=== PATIENT | female | born 1945 | race Caucasian/White ===

== ENCOUNTER → 2016-12-29 | Outpatient (CLI) | payer OTHER ==
[~2016-12-29] MED LIST: ASPI81TA28 PO; CALC600T9 PO; CLON0.5T3 PO; CYAN100020 PO; GLIM2TAB2 PO; LEVO-459 PO; MCRK20 PO; METF-384 PO; MULT-188 PO; MULT-506 PO; MULTCAP33 PO; TRAZ50TA35 PO
[2016-12-29 12:18] LABS: ESTIMATED AVERAGE GLUCOSE 140 mg/dl; HA1C FLAG Normal (Normal)
[2016-12-29 12:28] LABS: ALT/SGPT 51 U/L (12-78); AST/SGOT 33 U/L (15-37); BLOOD UREA NITROGEN 12 mg/dl (7-18); BUN/CREATININE RATIO 16.4 (10-20); CALCIUM 8.9 mg/dl (8.5-10.1); CARBON DIOXIDE 24 mmol/L (21-32); CHLORIDE 107 mmol/L (98-107); CREATININE 0.74 mg/dl (0.60-1.20); GLUCOSE 97 mg/dl (70-99); POTASSIUM 3.5 mmol/L (3.5-5.1); SODIUM 141 mmol/L (136-145)
[2016-12-29 12:39] LABS: ALB/GLOB RATIO 1.2 (0.9-2); ALKALINE PHOSPHATASE 56 U/L (45-117); CHOLESTEROL 174 mg/dl (0-200); CHOLESTEROL/HDL RATIO 4.6; HDL CHOLESTEROL 38 mg/dl; LDL CHOLESTEROL CALCULATED 94 mg/dl; TRIGLYCERIDES 212 mg/dl (0-150); VERY LOW DENSITY LIPOPROT CALC 42 mg/dl
== END | disposition home or self-care (01) ==
LOC: C.LABBFT 08:45
PROVIDERS: ATTEND Internal Medicine
DX: E11.29 Type 2 diabetes mellitus with other diabetic kidney complication (principal)

== ENCOUNTER → 2017-04-27 | Day surgery (SDC) | payer OTHER ==
[2017-04-09 10:03] VITALS: Ht 160 cm; Wt 100.9 kg
[~2017-04-27] VITALS: Ht 160 cm; Wt 100.9 kg
[~2017-04-27] MED LIST changes: +LABETALOL HCL IV 5 MG/ML 20ML IV ONE; +LIDOCAINE HCL 2% 2 ML VIAL (20MG/ML) ONE; +PROPOFOL IV EMULSION 10 MG/ML 20 ML VIAL IV ONE; +SODIUM CHLORIDE 0.9% 500ML 500 ML IV ONE
--- NOTE | 2017-04-27 11:09 | Endo History and Physical ---
History & Physical Date of Service: Apr 27, 2017. Chief Complaint: History of stomach tumor and Screening colonoscopy Referring Physician: Dr. Moralez History of Present Illness 71 yo CF who presents for EGD secondary to history of stomach tumor and screening colonoscopy. Past Medical History Diabetes, Anxiety, High Cholesterol, COPD, Thyroid Disease, CVA/TIA, Depression Past Surgical History Hx Cardiac Surgery: No Hx Internal Defibrillator: No Hx Pacemaker: No Hx Abdominal Surgery: Yes (COLON RESECTION, MALIHA BSO, LETI) Hx of Implantable Prosthesis: No Hx Post-Op Nausea and Vomiting: No Hx Cancer Surgery: No Hx Thoracic Surgery: No Hx Orthopedic: No Hx Urinary Tract Surgery: No Family History Colon CA Social History Smoking Status: Former Smoker Hx Substance Use: No Hx Alcohol Use: No Allergies Coded Allergies: No Known Drug Allergy (Verified Allergy, Unknown, NKDA, 04/09/17) Uncoded Allergies: YELLOW GOLD (Allergy, Unknown, RASH, 04/09/17) Current Medications Reported Home Medications Medications Dose Route/Sig Max Daily Dose Days Date Category Preservision Areds (Multiple Vitamins W/ Minerals) 1 Cap Cap 1 Cap PO QAM 04/09/17 Reported Multivitamin (Multivitamins) Tab 1 Tab PO QAM 02/29/16 Reported Glimepiride 2 Mg Tab 1 Tab PO QAM 02/29/16 Reported Klonopin (Clonazepam) 0.5 Mg Tab 0.5 Mg PO BID 02/29/16 Reported Ocuvite (Multiple Vitamins W/ Minerals) 1 Tab Tab 1 Tab PO QAM 05/16/15 Reported Calcium + D (Calcium Carbonate-Vitamin D) 1 Tab Tab 1 Tab PO QAM 05/16/15 Reported Vitamin B12 (Cyanocobalamin) 1,000 Mcg Tab 1 Tab PO QAM 05/16/15 Reported Trazodone (Trazodone HCl) 50 Mg Tab 50 Mg PO HS 05/16/15 Reported Aspirin Ec (Aspirin) 81 Mg Tab 81 Mg PO QAM 05/16/15 Reported Glucophage (Metformin Hcl) 1,000 Mg Tab 1,000 Mg PO BID 04/13/14 Reported Vital Signs Weight (Kilograms): 100.91 Height (Feet): 5 Height (Inches): 3 Physical Exam General Appearance: WD/WN, no apparent distress Respiratory/Chest: Auscultation: breath sounds normal Cardiovascular: Heart Auscultation: RRR Abdomen: Bowel Sounds: normal Inspection & Palpation: soft, non-distended, no tenderness, guarding & rebound Assessment and Plan Assessment: 71 yo CF who presents for EGD secondary to history of stomach tumor and screening colonoscopy. Plan: Proceed with EGD and colonoscopy.
--- NOTE | 2017-04-27 12:22 | Discharge Instructions ---
Endoscopy Patient Instructions Date / Procedure(s) Performed Apr 27, 2017. Colonoscopy, EGD Allergy Information Coded Allergies: No Known Drug Allergy (Verified Allergy, Unknown, NKDA, 04/09/17) Uncoded Allergies: YELLOW GOLD (Allergy, Unknown, RASH, 04/09/17) Discharge Date / Findings Apr 27, 2017. EGD: Foreign Body Removal (Suture at gastric anastomosis) Colonoscopy: Sigmoid colon anastomosis, Internal hemorrhoids Medication Instructions Stopped Medication(s): ASPIRIN 81MG LAST DOSE 04/24/17 OK to resume all medications today as prescribed Reported Home Medications Medications Dose Route/Sig Max Daily Dose Days Date Category Preservision Areds (Multiple Vitamins W/ Minerals) 1 Cap Cap 1 Cap PO QAM 04/09/17 Reported Multivitamin (Multivitamins) Tab 1 Tab PO QAM 02/29/16 Reported Glimepiride 2 Mg Tab 1 Tab PO QAM 02/29/16 Reported Klonopin (Clonazepam) 0.5 Mg Tab 0.5 Mg PO BID 02/29/16 Reported Ocuvite (Multiple Vitamins W/ Minerals) 1 Tab Tab 1 Tab PO QAM 05/16/15 Reported Calcium + D (Calcium Carbonate-Vitamin D) 1 Tab Tab 1 Tab PO QAM 05/16/15 Reported Vitamin B12 (Cyanocobalamin) 1,000 Mcg Tab 1 Tab PO QAM 05/16/15 Reported Trazodone (Trazodone HCl) 50 Mg Tab 50 Mg PO HS 05/16/15 Reported Aspirin Ec (Aspirin) 81 Mg Tab 81 Mg PO QAM 05/16/15 Reported Glucophage (Metformin Hcl) 1,000 Mg Tab 1,000 Mg PO BID 04/13/14 Reported Provider Instructions Activity Restrictions - No exercising or heavy lifting for 24 hours. - Do not drink alcohol the day of the procedure. - Do not drive a car or operate machinery until the day after the procedure. - Do not make any important decisions or sign important papers in 24 hours after the procedure. Following Day: - Return to full activity which may include returning to work/school. Diet Start your diet with liquids and light foods (jello, soup, juice, toast). Then eat your usual diet if not nauseated. Treatment For Common After Affects For mild abdominal pain, bloating, or excessive gas: - Rest - Eat lightly - Lie on right side Follow-Up Information Follow-up with DR. YOST as scheduled Anesthesia Information What You Should Know You have had a procedure that required some medicine to reduce anxiety and discomfort. This treatment is called moderate sedation. After receiving the treatment, you may be sleepy, but you will be able to breathe on your own. The effects of the treatment may last for several hours. Follow these instructions along with Activity/Diet recommendations noted above: * Do NOT do anything where dizziness or clumsiness would be dangerous. * Rest quietly at home today, then you can be up and about tomorrow. * Have a responsible person stay with you the rest of today. * You may have had an I.V. today. If so, you may take the dressing off later today. Recommendations Call your doctor if: * Trouble breathing * Continuous vomiting for more than 24 hours * Temperature above 101 degrees * Severe abdominal pain or bloating * Pain not relieved by pain medicine ordered * There is increased drainage or redness from any incision * A large amount of rectal bleeding greater than 2-3 tablespoons. (If you had a polyp/s removed or have hemorrhoids, a small amount of blood - from the rectum is to be expected.) * You have any unanswered questions or concerns. IN THE EVENT OF A SERIOUS EMERGENCY, GO TO THE NEAREST EMERGENCY ROOM Your discharge instructions were prepared by provider Hieu Campos. Patient Instructions Signature Page [place] Pop Patient (or Guardian) Signature/Date: I have read and understand the instructions given to me by my caregivers. Caregiver/RN/Doctor Signature/Date: The above-named patient and/or guardian has received patient instructions on this date. + Original Patient Signature Page (only) stays with chart. Please make copy for patient.
--- NOTE | 2017-04-27 12:27 | GI REPORT ---
Procedure Date: 04/27/2017 11:45 AM Procedure: Upper GI endoscopy Indications: Family history of gastric cancer Medicines: Monitored Anesthesia Care Complications: No immediate complications. Estimated Blood Loss: Estimated blood loss: none. Procedure: Pre-Anesthesia Assessment: - Prior to the procedure, a History and Physical was performed, and patient medications and allergies were reviewed. The patient's tolerance of previous anesthesia was also reviewed. The risks and benefits of the procedure and the sedation options and risks were discussed with the patient. All questions were answered, and informed consent was obtained. Prior Anticoagulants: The patient has taken aspirin, last dose was 3 days prior to procedure. ASA Grade Assessment: II - A patient with mild systemic disease. After reviewing the risks and benefits, the patient was deemed in satisfactory condition to undergo the procedure. After obtaining informed consent, the endoscope was passed under direct vision. Throughout the procedure, the patient's blood pressure, pulse, and oxygen saturations were monitored continuously. The Scope was introduced through the mouth, and advanced to the second part of duodenum. The upper GI endoscopy was accomplished without difficulty. The patient tolerated the procedure well. Findings: The esophagus was normal. A suture was found at the anastomosis. Removal was accomplished with a regular forceps and a block cutter. The examined duodenum was normal. Impression: - Normal esophagus. - A suture was found in the stomach. Removal was successful. - Normal examined duodenum. Recommendation: - Resume previous diet. - Continue present medications. - Repeat the upper endoscopy in 3 years for surveillance. - Return to primary care physician as previously scheduled. Hieu Campos DO 04/27/2017 12:27:09 PM This report has been signed electronically. Note Initiated On: 04/27/2017 11:45 AM I attest to the content of the Intraoperative Record and orders documented therein, exceptions below
--- NOTE | 2017-04-27 12:29 | GI REPORT ---
Procedure Date: 04/27/2017 11:51 AM Procedure: Colonoscopy Indications: Screening for colorectal malignant neoplasm Medicines: Monitored Anesthesia Care Complications: No immediate complications. Estimated Blood Loss: Estimated blood loss: none. Procedure: Pre-Anesthesia Assessment: - Prior to the procedure, a History and Physical was performed, and patient medications and allergies were reviewed. The patient's tolerance of previous anesthesia was also reviewed. The risks and benefits of the procedure and the sedation options and risks were discussed with the patient. All questions were answered, and informed consent was obtained. Prior Anticoagulants: The patient has taken aspirin, last dose was 3 days prior to procedure. ASA Grade Assessment: II - A patient with mild systemic disease. After reviewing the risks and benefits, the patient was deemed in satisfactory condition to undergo the procedure. After I obtained informed consent, the scope was passed under direct vision. Throughout the procedure, the patient's blood pressure, pulse, and oxygen saturations were monitored continuously. The scope was introduced through the anus and advanced to the ileocolonic anastomosis. The colonoscopy was performed without difficulty. The patient tolerated the procedure well. The quality of the bowel preparation was good. The terminal ileum and the rectum were photographed. Findings: There was evidence of a prior end-to-side ileo-colonic anastomosis in the sigmoid colon. This was patent and was characterized by healthy appearing mucosa. The anastomosis was traversed. Non-bleeding internal hemorrhoids were found during retroflexion. The hemorrhoids were small. Impression: - Patent end-to-side ileo-colonic anastomosis, characterized by healthy appearing mucosa. - Non-bleeding internal hemorrhoids. - No specimens collected. Recommendation: - Resume previous diet. - Continue present medications. - Repeat colonoscopy in 5 years for surveillance. - Return to primary care physician as previously scheduled. Hieu Campos DO 04/27/2017 12:29:04 PM This report has been signed electronically. Note Initiated On: 04/27/2017 11:51 AM I attest to the content of the Intraoperative Record and orders documented therein, exceptions below
--- NOTE | 2017-04-27 12:55 | Anesthesiology Progress Note ---
Anesthesia Post Op Note Date & Time Apr 27, 2017 at 12:54 Vital Signs Pain Intensity: 0 Vital Signs Past 12 Hours Date Time Temp Pulse Resp B/P (MAP) Pulse Ox O2 Delivery O2 Flow Rate FiO2 04/27/17 12:45 85 20 144/75 (98) 96 Room Air 04/27/17 12:30 90 20 143/84 (103) 95 Room Air 04/27/17 11:05 36.8 95 18 162/63 (96) 100 Room Air Notes Mental Status: alert / awake / arousable, participated in evaluation Pt Amnestic to Procedure: Yes Nausea / Vomiting: adequately controlled Pain: adequately controlled Airway Patency, RR, SpO2: stable & adequate BP & HR: stable & adequate Hydration State: stable & adequate Anesthetic Complications: no major complications apparent
[2017-04-27 13:00] VITALS: BP 154/75; PULSE 86; O2SAT 96
== END | disposition home or self-care (01) ==
LOC: C.GI 10:48
PROVIDERS: ATTEND Internal Medicine
DX: Z12.11 Encounter for screening for malignant neoplasm of colon (principal); K64.8 Other hemorrhoids; Z87.19 Personal history of other diseases of the digestive system; E11.9 Type 2 diabetes mellitus without complications; F41.9 Anxiety disorder, unspecified; E78.00 Pure hypercholesterolemia, unspecified; J44.9 Chronic obstructive pulmonary disease, unspecified; Z86.73 Personal history of transient ischemic attack (TIA), and cerebral infarction without residual deficits; F32.9 Major depressive disorder, single episode, unspecified; Z90.710 Acquired absence of both cervix and uterus; Z90.49 Acquired absence of other specified parts of digestive tract; Z87.891 Personal history of nicotine dependence; Z79.82 Long term (current) use of aspirin; Z79.84 Long term (current) use of oral hypoglycemic drugs
CPT/HCPCS: 43247; G0121

== ENCOUNTER 2017-06-11 18:38 | Inpatient (IN) | payer OTHER ==
[~2017-06-11] VITALS: Ht 160 cm; Wt 98.7 kg
[~2017-06-11 18:38] MED LIST changes: -LABETALOL HCL IV 5 MG/ML 20ML IV ONE; -LEVO-459 PO; -LIDOCAINE HCL 2% 2 ML VIAL (20MG/ML) ONE; -MCRK20 PO; -PROPOFOL IV EMULSION 10 MG/ML 20 ML VIAL IV ONE; -SODIUM CHLORIDE 0.9% 500ML 500 ML IV ONE
--- NOTE | 2017-06-11 20:58 | DIAGNOSTIC IMAGING REPORT ---
CHEST ONE VIEW PORTABLE CLINICAL HISTORY: 71 years-old Female presenting with cp. TECHNIQUE: Portable upright AP view of the chest was obtained. COMPARISON: 03/06/2016. FINDINGS: Cardiac silhouette mildly prominent, unchanged. Minimal bibasilar ill-defined opacities. No other focal infiltrate. No pleural effusion or pneumothorax. Degenerative changes of the bilateral glenohumeral joints. Degenerative or posttraumatic changes of the right acromioclavicular joint. Upper abdomen normal. IMPRESSION: 1. Minimal bibasilar atelectasis suspected. No other focal infiltrate. Electronically signed by: Carlos Tang M.D. 06/11/2017 8:57 PM Dictated Date/Time: 06/11/2017 8:55 PM
[2017-06-11 21:39] LABS: MEAN CELL VOLUME 76.9 fL (80-100); MEAN CORPUSCULAR HEMOGLOBIN 25.1 pg (25-34); MEAN CORPUSCULAR HGB CONC 32.6 g/dl (32-36); MEAN PLATELET VOLUME 10.6 fL (7.4-10.4); PLATELET COUNT 226 K/uL (130-400); RED BLOOD COUNT 4.94 M/uL (4.2-5.4); WHITE BLOOD COUNT 16.55 K/uL (4.8-10.8)
[2017-06-11 21:50] LABS: INR 1.1 (0.9-1.1); PROTHROMBIN TIME (PATIENT) 11.5 SECONDS (9.0-12.0)
[2017-06-11 21:56] LABS: ALT/SGPT 21 U/L (12-78); BLOOD UREA NITROGEN 7 mg/dl (7-18); BUN/CREATININE RATIO 9.7 (10-20); CALCIUM 9.4 mg/dl (8.5-10.1); CARBON DIOXIDE 24 mmol/L (21-32); CHLORIDE 101 mmol/L (98-107); CREATININE 0.72 mg/dl (0.60-1.20); GLUCOSE 153 mg/dl (70-99); POTASSIUM 3.3 mmol/L (3.5-5.1); SODIUM 135 mmol/L (136-145)
[2017-06-11 22:01] LABS: ALB/GLOB RATIO 0.8 (0.9-2); ALKALINE PHOSPHATASE 72 U/L (45-117); AST/SGOT 14 U/L (15-37)
[2017-06-11] MEDS ORDERED: OPTIRAY 320 IV PRN (22:15)
--- NOTE | 2017-06-11 23:01 | DIAGNOSTIC IMAGING REPORT ---
(CHEST FOR PE) ANGIO WITH CLINICAL HISTORY: 71 years-old Female presenting with tachycardia, chest pain. TECHNIQUE: Multidetector CT angiography of the chest was performed after administration of intravenous contrast. 3-D volumetric and/or maximum intensity projection (MIP) images were subsequently reconstructed for review. IV contrast: 89 mL of Optiray 320. A dose lowering technique was used consistent with the principles of ALARA (as low as reasonably achievable). COMPARISON: 04/21/2014. CT DOSE (mGy.cm): The estimated cumulative dose is 604.52 mGy.cm. FINDINGS: Patternmaker Sample topogram: Cholecystectomy clips noted. Pulmonary vasculature: The study is adequate for assessment of the pulmonary vascular tree. No filling defect within the pulmonary arteries to suggest embolus. Main pulmonary artery is not enlarged. No flattening of the interventricular septum. No intracardiac intracardiac filling defect. No reflux of contrast into the hepatic veins. Remaining chest: On soft tissue windows, normal thyroid and thoracic inlet. No axillary, supraclavicular, hilar, or mediastinal lymphadenopathy. Infiltration of the anterior mediastinum may be postsurgical or postinflammatory. Minimal atherosclerosis of the aortic arch. Mild multichamber enlargement of the heart. Coronary artery calcification. No pericardial or pleural effusion. Cholecystectomy clips noted. Prominent lobular contour of the kidneys consistent with scarring better appreciated on the prior exam. On lung windows, Mosaic attenuation suggest small airways disease. Minimal dependent changes likely atelectasis. Few small patchy areas of groundglass opacity in the right upper lobe. Evaluation is overall degraded due to respiratory motion artifact. Airways patent. On bone windows, mild apparent soft tissue prominence at the sternomanubrial joint. Degenerative changes of the thoracic spine. Degenerative changes of the bilateral glenohumeral joints. IMPRESSION: 1. No evidence of pulmonary embolus. 2. Mosaic attenuation may suggest small airways disease. 3. Few small patchy areas of groundglass opacity in the right upper lobe. An infectious etiology cannot be excluded. Electronically signed by: Carlos Tang M.D. 06/11/2017 11:00 PM Dictated Date/Time: 06/11/2017 10:52 PM
[2017-06-11] MEDS ORDERED: SODIUM CHLORIDE 0.9% 1000ML 1,000 ML IV STA (23:16)
[2017-06-11] MEDS ORDERED: LEVAQUIN 750MG / 150ML D5W IV STA (23:25)
[2017-06-11] MEDS ORDERED: ACETAMINOPHEN 500 MG TAB PO STA (23:25)
[2017-06-12] VITALS (8 sets, daily range): BP systolic 135–155; BP diastolic 79–89; PULSE 95–115; TEMP 36.8–37.4; O2SAT 91–95; Ht 160 cm; Wt 98.7 kg
--- NOTE | 2017-06-12 01:22 | EMERGENCY ROOM VISIT NOTE ---
ED Visit Note First contact with patient: 21:09 The patient was seen and examined with Romelia Presley PA-C. I agree with the history, physical and findings. Please see the note for disposition and details.
[2017-06-12] MEDS ORDERED: LEVOFLOXACIN 250 MG TAB PO STA (01:33)
--- NOTE | 2017-06-12 01:36 | History and Physical ---
History & Physical Date & Time of Service: Jun 12, 2017 at 01:35 Chief Complaint: Chest Pain Primary Care Physician: Krish Moralez M.D. History of Present Illness Source: patient Mrs Pop is a 71-year-old female who initially presented with chest pain. She reports she had mild intermittent central chest pain for a few minutes which went away on its own. She reports she has had fevers and feeling sweaty the last few nights. She denied any cough. She did report associated shortness of breath. She came to the ED and was found to have right bundle branch block on her EKG, but this was found on previous EKGs. She was also found to be tachycardic. Her d-dimer was elevated and so CT was performed, showing that she had a possible pneumonia. She was started on Levaquin, and when ambulating her pulse ox dropped to about 87. She reports she never had pneumonia before. She reports she started feeling better. She denies any recent hospitalizations. She reports the chest pain has gone away. Past Medical/Surgical History Medical Problems: - History of malignant tumor of stomach - HTN -Hyperlipidemia PSHx: Cholecystectomy Family History No pertinent family history Social History Ex-smoker. Non drinking. No drug use. Smoking Status: Former Smoker Smokeless Tobacco Use: No Alcohol Use: none Drug Use: none Marital Status: single Housing status: lives alone Occupational Status: employed Immunizations History of Influenza Vaccine: Yes History of Tetanus Vaccine?: Yes History of Pneumococcal: Yes History of Hepatitis B Vaccine: No Multi-Drug Resistant Organisms History of MDRO: No Allergies Coded Allergies: No Known Drug Allergy (Verified Allergy, Unknown, NKDA, 06/11/17) Uncoded Allergies: YELLOW GOLD (Allergy, Unknown, RASH, 04/09/17) Home Medications Scheduled Aspirin (Aspirin Ec), 81 MG PO QAM Calcium Carbonate-Vitamin D (Calcium + D), 1 TAB PO QAM Clonazepam (Klonopin), 0.5 MG PO BID Cyanocobalamin (Vitamin B12), 1 TAB PO QAM Glimepiride (Glimepiride), 1 TAB PO QAM Metformin Hcl (Glucophage), 1,000 MG PO QAM Multiple Vitamins W/ Minerals (Ocuvite), 1 TAB PO QAM Multiple Vitamins W/ Minerals (Preservision Areds), 1 CAP PO QAM Trazodone Hcl (Trazodone), 50 MG PO HS Review of Systems See HPI for pertinent positives & negatives. A total of 10 systems reviewed and were otherwise negative. Physical Exam Vital Signs Date Time Temp Pulse Resp B/P (MAP) Pulse Ox O2 Delivery O2 Flow Rate FiO2 06/12/17 01:15 141/69 06/12/17 01:06 106 17 96 06/12/17 01:01 90/54 06/12/17 00:57 106 26 97 06/12/17 00:54 152/72 06/12/17 00:27 108 22 95 06/12/17 00:15 120 20 87 Room Air 06/11/17 23:52 112 22 95 06/11/17 23:31 181/98 06/11/17 23:22 112 26 99 06/11/17 23:17 114 169/87 97 06/11/17 22:38 112 18 130/76 94 Room Air 06/11/17 21:01 158/82 06/11/17 20:42 110 06/11/17 20:38 112 28 96 06/11/17 20:34 98 Room Air 06/11/17 20:32 98 Room Air 06/11/17 19:36 151/85 06/11/17 18:45 37.2 120 18 158/96 97 Room Air 06/11/17 18:44 98 Room Air General Appearance: WD/WN, no apparent distress Head: normocephalic, atraumatic Eyes: normal inspection, PERRL ENT: + pertinent finding (edentulous) Neck: supple, no JVD Respiratory/Chest: lungs clear, normal breath sounds, no respiratory distress, no accessory muscle use Cardiovascular: regular rate, rhythm, no murmur, normal peripheral pulses Abdomen/GI: normal bowel sounds, non tender, soft Back: no CVA tenderness, no muscle spasm Extremities/Musculoskelatal: no calf tenderness, no pedal edema Neurologic/Psych: alert, normal mood/affect, normal reflexes Skin: no rash Diagnostics Laboratory Results Results Past 24 Hours Test 06/11/17 21:36 Range/Units White Blood Count 16.55 4.8-10.8 K/uL Red Blood Count 4.94 4.2-5.4 M/uL Hemoglobin 12.4 12.0-16.0 g/dL Hematocrit 38.0 37-47 % Mean Corpuscular Volume 76.9 80-100 fL Mean Corpuscular Hemoglobin 25.1 25-34 pg Mean Corpuscular Hemoglobin Concent 32.6 32-36 g/dl RDW Standard Deviation 47.1 36.4-46.3 fL RDW Coefficient of Variation 16.9 11.5-14.5 % Platelet Count 226 130-400 K/uL Mean Platelet Volume 10.6 7.4-10.4 fL Prothrombin Time 11.5 9.0-12.0 SECONDS Prothromb Time International Ratio 1.1 0.9-1.1 Activated Partial Thromboplast Time 26.8 21.0-31.0 SECONDS Partial Thromboplastin Ratio 1.0 D-Dimer 760 0-500 ug/L FEU Sodium Level 135 136-145 mmol/L Potassium Level 3.3 3.5-5.1 mmol/L Chloride Level 101 98-107 mmol/L Carbon Dioxide Level 24 21-32 mmol/L Anion Gap 10.0 3-11 mmol/L Blood Urea Nitrogen 7 7-18 mg/dl Creatinine 0.72 0.60-1.20 mg/dl Est Creatinine Clear Calc Drug Dose 82.5 ml/min Estimated GFR () 99.0 Estimated GFR (Non- 85.4 BUN/Creatinine Ratio 9.7 10-20 Random Glucose 153 70-99 mg/dl Calcium Level 9.4 8.5-10.1 mg/dl Total Bilirubin 0.6 0.2-1 mg/dl Aspartate Amino Transf (AST/SGOT) 14 15-37 U/L Alanine Aminotransferase (ALT/SGPT) 21 12-78 U/L Alkaline Phosphatase 72 45-117 U/L Total Creatine Kinase 36 26-192 U/L Creatine Kinase MB < 0.5 0.5-3.6 ng/ml Creatine Kinase MB Ratio 0-3.0 Troponin I < 0.015 0-0.045 ng/ml Total Protein 8.2 6.4-8.2 gm/dl Albumin 3.6 3.4-5.0 gm/dl Globulin 4.6 2.5-4.0 gm/dl Albumin/Globulin Ratio 0.8 0.9-2 Diagnostic Radiology (CHEST FOR PE) ANGIO WITH CLINICAL HISTORY: 71 years-old Female presenting with tachycardia, chest pain. TECHNIQUE: Multidetector CT angiography of the chest was performed after administration of intravenous contrast. 3-D volumetric and/or maximum intensity projection (MIP) images were subsequently reconstructed for review. IV contrast: 89 mL of Optiray 320. A dose lowering technique was used consistent with the principles of ALARA (as low as reasonably achievable). COMPARISON: 04/21/2014. CT DOSE (mGy.cm): The estimated cumulative dose is 604.52 mGy.cm. FINDINGS: Foot Specialist topogram: Cholecystectomy clips noted. Pulmonary vasculature: The study is adequate for assessment of the pulmonary vascular tree. No filling defect within the pulmonary arteries to suggest embolus. Main pulmonary artery is not enlarged. No flattening of the interventricular septum. No intracardiac intracardiac filling defect. No reflux of contrast into the hepatic veins. Remaining chest: On soft tissue windows, normal thyroid and thoracic inlet. No axillary, supraclavicular, hilar, or mediastinal lymphadenopathy. Infiltration of the anterior mediastinum may be postsurgical or postinflammatory. Minimal atherosclerosis of the aortic arch. Mild multichamber enlargement of the heart. Coronary artery calcification. No pericardial or pleural effusion. Cholecystectomy clips noted. Prominent lobular contour of the kidneys consistent with scarring better appreciated on the prior exam. On lung windows, Mosaic attenuation suggest small airways disease. Minimal dependent changes likely atelectasis. Few small patchy areas of groundglass opacity in the right upper lobe. Evaluation is overall degraded due to respiratory motion artifact. Airways patent. On bone windows, mild apparent soft tissue prominence at the sternomanubrial joint. Degenerative changes of the thoracic spine. Degenerative changes of the bilateral glenohumeral joints. IMPRESSION: 1. No evidence of pulmonary embolus. 2. Mosaic attenuation may suggest small airways disease. 3. Few small patchy areas of groundglass opacity in the right upper lobe. An infectious etiology cannot be excluded. CXR IMPRESSION: 1. Minimal bibasilar atelectasis suspected. No other focal infiltrate. No change from prior EKG Impression Assessment and Plan 71-year-old presents with fever, tachycardia, and hypoxia - fits with pneumonia , PE ruled out. RUL Community acquired PNA - Continue Levaquin PO Potential COPD - Duonebs q6h - Consider spirometry Depression / Insomnia - Continue Trazodone Type 2 DM - Continue Metformin/Glipizide VTE: Lovenox Dispo: Med/Surg Code status: Full Attending Addendum: I have physically seen and examined this patient, have directed the resident's medical activities, and agree with the H&P as noted above with the following exceptions as noted. The patient is awake, alert and oriented 3, well-developed and well-nourished , normocephalic and atraumatic, lying in bed and in no acute distress. HEENT--PERRL, EOMI, mucous membranes and oropharynx dry. Neck--supple, no JVD or bruits, thyroid normal, trachea midline, no adenopathy. Heart--normal S1 and S2, no extra beats, no murmurs, rubs or gallops. Lungs--decreased breath sounds throughout, no respiratory distress, no accessory muscle use. Abdomen--normal bowel sounds and soft, nontender and nondistended, no hernias or masses, no organomegaly. Extremities--no cyanosis, clubbing or edema. There are good distal pulses b/l. Dermatologic--normal skin turgor, normal color, warm and dry, no abnormal lymph nodes, no rash. Neurologic--cranial nerves II through XII grossly intact. Rheumatologic--normal range of motion, nontender, muscles and joints. Psychiatric--normal affect. Assessment and Plan: Right upper lobe pneumonia/community acquired-- Levaquin 500 mg IV daily. Ceftriaxone 1 g IV daily. Guaifenesin extended release 600 mg by mouth twice a day. Duonebs every 4 hours while awake and every 2 hours when necessary. Diabetes mellitus-- Continue outpatient glipizide dosing. Hold metformin. Place on Accu-Cheks before meals and at bedtime with NovoLog coverage per scale. Level of Care Telemetry Advanced Directives Existing Advance Directive: No Existing Living Will: No Existing Power of Steeler: No Resuscitation Status FULL RESUSCITATION VTE Prophylaxis VTE Risk Assessment Done? Y/N: Yes Risk Level: Moderate Given or contraindicated: SCD's Social Service Consult None Apply Resident Tracking Resident Involvement: Resident Care Provided Care Provided: Adult Hospital Medicine
[2017-06-12] MEDS ORDERED: ONDANSETRON INJ 2 MG/ML 2 ML VIAL IV PRN (01:45)
[2017-06-12] MEDS ORDERED: POLYETHYLENE (MIRALAX) 17 GM PACK PO PRN (01:45)
[2017-06-12] MEDS ORDERED: ALUMINUM/MAGNESIUM/SIMETH (MAALOX MAX) 30 ML UDC PO PRN (01:45)
[2017-06-12] MEDS ORDERED: IV FLUIDS COMPLETED PRN ×2 (01:45→04:15)
[2017-06-12] MEDS ORDERED: MAGNESIUM HYDROXIDE SUSP 30 ML UDC PO PRN (01:45)
[2017-06-12] MEDS ORDERED: GLUCAGON FOR INJ 1 MG VIAL SQ PRN (02:15)
[2017-06-12] MEDS ORDERED: DEXTROSE 50% 50 ML SYR IV PRN (02:15)
[2017-06-12] MEDS ORDERED: GLUCOSE 10 TABS/TUBE PO PRN (02:15)
[2017-06-12] MEDS ORDERED: GLUCOSE 40% GEL 15 GM TUBE PO PRN (02:15)
[2017-06-12] MEDS: ZOLPIDEM TARTRATE 5 MG TAB PO PRN (03:02)
[2017-06-12] MEDS: CEFTRIAXONE SOD INJ 1 GM in DEXTROSE 5% ADD-VANTAGE 50ML 50 ML IV SCH (03:58)
[2017-06-12] MEDS: ACETAMINOPHEN 325 MG TAB PO PRN ×4 (04:07→22:48)
[2017-06-12] MEDS ORDERED: INFLUENZA VACCINE HIGH DOSE 65+ 0.5 ML SYR IM. ONE (04:15)
[2017-06-12] MEDS ORDERED: INFLUENZA ADMINISTRATION CHARGE ONE (04:15)
[2017-06-12] MEDS ORDERED: KETOROLAC TROMETHAMINE 10 MG TAB PO STA (06:03)
[2017-06-12] MEDS ORDERED: KETOROLAC TROMETHAMINE 10 MG TAB PO PRN (06:15)
[2017-06-12] MEDS: ALBUT/IPRATROP 3MG/0.5MG NEB 3 ML VIAL INH SCH ×4 (07:12→19:18)
--- NOTE | 2017-06-12 08:01 | EMERGENCY ROOM VISIT NOTE ---
History First contact with patient: 21:09 Chief Complaint: CHEST PAIN Stated Complaint: HYPOXIA, PNEUMONIA Nursing Triage Summary: R sided cp for 2 days, increases with movement, c/o sob History of Present Illness The patient is a 71 year old female who presents to the Emergency Room with complaints of chest pain with a past 2 days. The patient states that she has had pains in the center and right side of her chest for the past 2 days. She states that the pain is constant, and dull but she also has occasional sharp pains. Her pain worsens with walking. She also reports shortness of breath with any exertion. She has had no relief of her symptoms. She denies any cardiac history. The patient is a diabetic. She reports a strong family history of heart disease. She denies any recent cough, fevers/chills, abdominal pain, nausea or vomiting. She has not taken any medication for her symptoms. She rates her overall discomfort a 9/10. Review of Systems A complete 10 point review of systems was reviewed with the patient with pertinent positives and negatives as per history of present illness. All else were negative. Past Medical/Surgical History Medical Problems: (1) Cancer (2) Cholecystectomy (3) hereditary colonic polyposis (4) Hypoxia (5) Kidney stone (6) Malignant tumor of stomach (7) Neuroendocrine carcinoma (8) Pneumonia Social History Smoking Status: Former Smoker Smokeless Tobacco Use: No Alcohol Use: none Drug Use: none Marital Status: single Housing Status: lives alone Occupation Status: employed Current/Historical Medications Scheduled Aspirin (Aspirin Ec), 81 MG PO QAM Calcium Carbonate-Vitamin D (Calcium + D), 1 TAB PO QAM Clonazepam (Klonopin), 0.5 MG PO BID Cyanocobalamin (Vitamin B12), 1 TAB PO QAM Glimepiride (Glimepiride), 1 TAB PO QAM Metformin Hcl (Glucophage), 1,000 MG PO QAM Multiple Vitamins W/ Minerals (Ocuvite), 1 TAB PO QAM Multiple Vitamins W/ Minerals (Preservision Areds), 1 CAP PO QAM Trazodone Hcl (Trazodone), 50 MG PO HS Physical Exam Vital Signs Date Time Temp Pulse Resp B/P (MAP) Pulse Ox O2 Delivery O2 Flow Rate FiO2 06/12/17 01:15 141/69 06/12/17 01:06 106 17 96 06/12/17 01:01 90/54 06/12/17 00:57 106 26 97 06/12/17 00:54 152/72 06/12/17 00:27 108 22 95 06/12/17 00:15 120 20 87 Room Air 06/11/17 23:52 112 22 95 06/11/17 23:31 181/98 06/11/17 23:22 112 26 99 06/11/17 23:17 114 169/87 97 06/11/17 22:38 112 18 130/76 94 Room Air 06/11/17 21:01 158/82 06/11/17 20:42 110 06/11/17 20:38 112 28 96 06/11/17 20:34 98 Room Air 06/11/17 20:32 98 Room Air 06/11/17 19:36 151/85 06/11/17 18:45 37.2 120 18 158/96 97 Room Air 06/11/17 18:44 98 Room Air Pain Rating (0-10): 2.0 Physical Exam VITALS: Vitals are noted on the nurse's note and reviewed by myself. Vital signs stable. GENERAL: This is a 71-year-old female, in no acute distress, nondiaphoretic, well-developed well-nourished. SKIN: The skin was without rashes. EARS: External auditory canals clear, tympanic membranes pearly wells without erythema or effusion bilaterally. EYES: Pupils equal round and reactive to light and accommodation. Conjunctivae without injection, sclerae without icterus. MOUTH: Mucous membranes moist. NECK: Supple without nuchal rigidity. No lymphadenopathy. HEART: Regular rate and rhythm without murmurs gallops or rubs. LUNGS: Breath sounds slightly decreased throughout. No retractions or accessory muscle use. NEURO: Patient was alert and oriented to person place and time. Medical Decision & Procedures ER Provider Diagnostic Interpretation: CHEST ONE VIEW PORTABLE FINDINGS: Cardiac silhouette mildly prominent, unchanged. Minimal bibasilar ill-defined opacities. No other focal infiltrate. No pleural effusion or pneumothorax. Degenerative changes of the bilateral glenohumeral joints. Degenerative or posttraumatic changes of the right acromioclavicular joint. Upper abdomen normal. IMPRESSION: 1. Minimal bibasilar atelectasis suspected. No other focal infiltrate. (CHEST FOR PE) ANGIO WITH FINDINGS: Banquet Stewardess topogram: Cholecystectomy clips noted. Pulmonary vasculature: The study is adequate for assessment of the pulmonary vascular tree. No filling defect within the pulmonary arteries to suggest embolus. Main pulmonary artery is not enlarged. No flattening of the interventricular septum. No intracardiac intracardiac filling defect. No reflux of contrast into the hepatic veins. Remaining chest: On soft tissue windows, normal thyroid and thoracic inlet. No axillary, supraclavicular, hilar, or mediastinal lymphadenopathy. Infiltration of the anterior mediastinum may be postsurgical or postinflammatory. Minimal atherosclerosis of the aortic arch. Mild multichamber enlargement of the heart. Coronary artery calcification. No pericardial or pleural effusion. Cholecystectomy clips noted. Prominent lobular contour of the kidneys consistent with scarring better appreciated on the prior exam. On lung windows, Mosaic attenuation suggest small airways disease. Minimal dependent changes likely atelectasis. Few small patchy areas of groundglass opacity in the right upper lobe. Evaluation is overall degraded due to respiratory motion artifact. Airways patent. On bone windows, mild apparent soft tissue prominence at the sternomanubrial joint. Degenerative changes of the thoracic spine. Degenerative changes of the bilateral glenohumeral joints. IMPRESSION: 1. No evidence of pulmonary embolus. 2. Mosaic attenuation may suggest small airways disease. 3. Few small patchy areas of groundglass opacity in the right upper lobe. An infectious etiology cannot be excluded. Laboratory Results 06/11/17 21:36 06/11/17 21:36 Test 06/11/17 21:36 Red Blood Count 4.94 M/uL (4.2-5.4) Mean Corpuscular Volume 76.9 fL (80-100) Mean Corpuscular Hemoglobin 25.1 pg (25-34) Mean Corpuscular Hemoglobin Concent 32.6 g/dl (32-36) RDW Standard Deviation 47.1 fL (36.4-46.3) RDW Coefficient of Variation 16.9 % (11.5-14.5) Mean Platelet Volume 10.6 fL (7.4-10.4) Prothrombin Time 11.5 SECONDS (9.0-12.0) Prothromb Time International Ratio 1.1 (0.9-1.1) Activated Partial Thromboplast Time 26.8 SECONDS (21.0-31.0) Partial Thromboplastin Ratio 1.0 D-Dimer 760 ug/L FEU (0-500) Anion Gap 10.0 mmol/L (3-11) Est Creatinine Clear Calc Drug Dose 82.5 ml/min Estimated GFR () 99.0 Estimated GFR (Non- 85.4 BUN/Creatinine Ratio 9.7 (10-20) Calcium Level 9.4 mg/dl (8.5-10.1) Total Bilirubin 0.6 mg/dl (0.2-1) Aspartate Amino Transf (AST/SGOT) 14 U/L (15-37) Alanine Aminotransferase (ALT/SGPT) 21 U/L (12-78) Alkaline Phosphatase 72 U/L (45-117) Total Creatine Kinase 36 U/L (26-192) Creatine Kinase MB < 0.5 ng/ml (0.5-3.6) Creatine Kinase MB Ratio (0-3.0) Troponin I < 0.015 ng/ml (0-0.045) Total Protein 8.2 gm/dl (6.4-8.2) Albumin 3.6 gm/dl (3.4-5.0) Globulin 4.6 gm/dl (2.5-4.0) Albumin/Globulin Ratio 0.8 (0.9-2) Medications Administered Medications (Trade) Dose Ordered Sig/Kortney Route Start Time Stop Time Status Last Admin Dose Admin Sodium Chloride 1,000 ml @ 999 mls/hr Q1H1M STAT IV 06/11/17 23:16 06/12/17 00:16 DC 06/11/17 23:16 999 MLS/HR Acetaminophen (Tylenol Tab) 1,000 mg NOW STAT PO 06/11/17 23:25 06/11/17 23:27 DC 06/12/17 00:04 1,000 MG Levofloxacin (Levaquin / D5W) 750 mg NOW STAT IV 06/11/17 23:25 06/11/17 23:27 DC 06/12/17 00:04 750 MG Acetaminophen (Tylenol Tab) 650 mg Q4H PRN PO 06/12/17 01:45 07/12/17 01:44 06/12/17 04:07 650 MG Zolpidem Tartrate (Ambien Tab) 5 mg HSZ PRN PO 06/12/17 01:45 07/12/17 01:44 06/12/17 03:02 5 MG Levofloxacin (Levaquin Tab) 750 mg DAILY STAT PO 06/12/17 01:33 06/12/17 01:45 DC 06/12/17 01:53 750 MG ECG Indication: chest pain Rate (beats per minute): 116 Rhythm: sinus tachycardia Findings: RBBB Comparison ECG Date: RBBB present, increased rate ED Course The patient was evaluated as above. Labs were drawn and IV access was obtained. CT of the chest was performed and read by nicci. Patient was medicated with IV Levaquin and fluids. Patient was reevaluated and findings were discussed. She is agreeable to admission. Case was discussed with the [facility] resident, Dr. Tinsley. They agreed to evaluate the patient for admission. Medical Decision Differential diagnosis includes ACS, PE, pneumonia, musculoskeletal pain, intra- abdominal cause, among others. The patient is a 71-year-old female who presents today complaining of right- sided chest pain. Labs revealed a leukocytosis of 16,000. D-dimer was found to be elevated. CT of the chest for PE was performed and did not show any pulmonary emboli. This did show possible right upper lobe infiltrate. I feel this represents pneumonia given the patient's symptoms and leukocytosis. She is afebrile. However, she was persistently tachycardic and ambulatory pulse ox did drop to 87% on room air. I do feel the patient will require admission for further treatment. She was agreeable to this. Case was discussed with the [facility] hospitalist service, who agreed to evaluate the patient. The patient was independently evaluated by Dr. Rankin, ED attending physician, who agreed with my assessment and treatment plan. Medication Reconcilliation Current Medication List: was personally reviewed by ne Blood Pressure Screening Patient's blood pressure: Normal blood pressure Impression Primary Impression: Pneumonia Departure Information Dispostion Admitted as an inpatient Condition GOOD Referrals Krish Moralez M.D. (PCP) Forms Call Back Authorization, HOME CARE DOCUMENTATION FORM, IMPORTANT VISIT INFORMATION Patient Instructions My [facility]
[2017-06-12] MEDS: GUAIFENESIN 600 MG TABCR PO SCH ×2 (08:18→20:56)
[2017-06-12] MEDS: ASPIRIN 81 MG ECTAB PO SCH (08:18)
[2017-06-12] MEDS: GLIMEPIRIDE 2 MG TAB PO SCH (08:18)
[2017-06-12] MEDS: CEROVITE ADV FORMULA TAB PO SCH (08:19)
[2017-06-12] MEDS: INSULIN ASPART 100 UNITS/ML 3 ML PEN SC SCH ×4 (08:25→21:02)
[2017-06-12] MEDS ORDERED: METFORMIN HCL 500 MG TAB PO SCH (09:00)
[2017-06-12] MEDS: CLONAZEPAM 0.5 MG TAB PO SCH ×2 (10:14→20:59)
--- NOTE | 2017-06-12 18:31 | Progress Note ---
Subjective Date of Service: Jun 12, 2017. Subjective patient feels somewhat better but she still coughing up yellow mucus he's having no chills she's having no overt shortness of breath Review of Systems Constitutional: No fever, No chills Respiratory: + cough, + sputum, No shortness of breath, No dyspnea on exertion Cardiac: No chest pain, No PND Objective Vital Signs Date Time Temp Pulse Resp B/P (MAP) Pulse Ox O2 Delivery O2 Flow Rate FiO2 06/12/17 16:00 Room Air 06/12/17 15:41 108 16 93 Room Air 06/12/17 15:17 36.8 108 18 135/79 (97) 95 Room Air 06/12/17 11:18 104 16 95 Room Air 06/12/17 08:12 37.0 95 18 153/82 (105) 91 Room Air 06/12/17 08:00 Room Air 06/12/17 07:12 107 16 95 Room Air 06/12/17 03:10 36.8 110 16 151/87 95 Room Air 06/12/17 01:15 141/69 06/12/17 01:06 106 17 96 06/12/17 01:01 90/54 06/12/17 00:57 106 26 97 06/12/17 00:54 152/72 06/12/17 00:27 108 22 95 06/12/17 00:15 120 20 87 Room Air 06/11/17 23:52 112 22 95 06/11/17 23:31 181/98 06/11/17 23:22 112 26 99 06/11/17 23:17 114 169/87 97 06/11/17 22:38 112 18 130/76 94 Room Air 06/11/17 21:01 158/82 06/11/17 20:42 110 06/11/17 20:38 112 28 96 06/11/17 20:34 98 Room Air 06/11/17 20:32 98 Room Air 06/11/17 19:36 151/85 06/11/17 18:45 37.2 120 18 158/96 97 Room Air 06/11/17 18:44 98 Room Air Physical Exam General Appearance: WD/WN, + mild distress Eyes: PERRL, EOMI Respiratory/Chest: chest non-tender, lungs clear, normal breath sounds Cardiovascular: regular rate, rhythm, no murmur Abdomen: normal bowel sounds, non tender Extremities: no pedal edema, no calf tenderness Neurologic/Psychiatric: alert, oriented x 3 Laboratory Results Last 24 Hours Test 06/11/17 21:36 06/12/17 07:41 06/12/17 11:11 06/12/17 16:15 White Blood Count 16.55 K/uL Red Blood Count 4.94 M/uL Hemoglobin 12.4 g/dL Hematocrit 38.0 % Mean Corpuscular Volume 76.9 fL Mean Corpuscular Hemoglobin 25.1 pg Mean Corpuscular Hemoglobin Concent 32.6 g/dl RDW Standard Deviation 47.1 fL RDW Coefficient of Variation 16.9 % Platelet Count 226 K/uL Mean Platelet Volume 10.6 fL Prothrombin Time 11.5 SECONDS Prothromb Time International Ratio 1.1 Activated Partial Thromboplast Time 26.8 SECONDS Partial Thromboplastin Ratio 1.0 D-Dimer 760 ug/L FEU Sodium Level 135 mmol/L Potassium Level 3.3 mmol/L Chloride Level 101 mmol/L Carbon Dioxide Level 24 mmol/L Anion Gap 10.0 mmol/L Blood Urea Nitrogen 7 mg/dl Creatinine 0.72 mg/dl Est Creatinine Clear Calc Drug Dose 82.5 ml/min Estimated GFR () 99.0 Estimated GFR (Non- 85.4 BUN/Creatinine Ratio 9.7 Random Glucose 153 mg/dl Calcium Level 9.4 mg/dl Total Bilirubin 0.6 mg/dl Aspartate Amino Transf (AST/SGOT) 14 U/L Alanine Aminotransferase (ALT/SGPT) 21 U/L Alkaline Phosphatase 72 U/L Total Creatine Kinase 36 U/L Creatine Kinase MB < 0.5 ng/ml Creatine Kinase MB Ratio Troponin I < 0.015 ng/ml Total Protein 8.2 gm/dl Albumin 3.6 gm/dl Globulin 4.6 gm/dl Albumin/Globulin Ratio 0.8 Hepatitis C Antibody Screen NEG Bedside Glucose 123 mg/dl 149 mg/dl 153 mg/dl Assessment and Plan 71-year-old presents with fever, tachycardia, and hypoxia -CT scan consistent with right upper lobe pneumonia, PE ruled out. RUL Community acquired PNA - Continue Levaquin PO if the patient improves by 06/13 consider discharge with pulmonary follow-up given the nature that this is right upper lobe the patient was quizzed whether should any tuberculosis exposure the patient denies she also states that with her previous job at a long term she had regular annual PPDs which were always negative Potential COPD suggested by imaging study - Geovanny q6h Depression / Insomnia in good control with Trazodone Type 2 DM diabetic diet plus Metformin/Glipizide VTE: Lovenox Code status: Full
[2017-06-13] VITALS (7 sets, daily range): BP systolic 142–174; BP diastolic 83–99; PULSE 81–126; TEMP 37.1–37.8; O2SAT 93–97
[2017-06-13] MEDS ORDERED: LEVOFLOXACIN / D5W 500 MG in PREMIXED IN D5W 100 ML IV SCH
[2017-06-13] MEDS: ZOLPIDEM TARTRATE 5 MG TAB PO PRN (01:07)
[2017-06-13] MEDS: CEFTRIAXONE SOD INJ 1 GM in DEXTROSE 5% ADD-VANTAGE 50ML 50 ML IV SCH (03:48)
[2017-06-13] MEDS: ACETAMINOPHEN 325 MG TAB PO PRN ×2 (06:29→12:13)
[2017-06-13] MEDS: ALBUT/IPRATROP 3MG/0.5MG NEB 3 ML VIAL INH SCH ×2 (07:09→11:17)
[2017-06-13] MEDS ORDERED: LEVO-459 PO (08:17)
--- NOTE | 2017-06-13 08:17 | Discharge Instructions ---
Discharge Instructions Date of Service Jun 13, 2017. Admission Reason for Admission: Hypoxia, Pneumonia Discharge Discharge Diagnosis / Problem: pneumonia Discharge Goals Goal(s): Diagnostic testing, Therapeutic intervention Activity Recommendations Activity Limitations: resume your previous activity . Current Hospital Diet Patient's current hospital diet: AHA Diet (Heart Healthy), Diabetes Type 2 Diet Discharge Diet Recommended Diet: Diabetes Type 2 Diet Pending Studies Studies pending at discharge: no Medical Emergencies . Who to Call and When: Medical Emergencies: If at any time you feel your situation is an emergency, please call 911 immediately. . Non-Emergent Contact Non-Emergency issues call your: Primary Care Provider Call Non-Emergent contact if: temperature is above 101, your pain is unusual for you . . "Provider Documentation" section prepared by Travis Flood. . VTE Core Measure Inpt VTE Proph given/why not?: SCD's
[2017-06-13] MEDS: CEROVITE ADV FORMULA TAB PO SCH (08:25)
[2017-06-13] MEDS: GUAIFENESIN 600 MG TABCR PO SCH (08:25)
[2017-06-13] MEDS: ASPIRIN 81 MG ECTAB PO SCH (08:25)
[2017-06-13] MEDS: CLONAZEPAM 0.5 MG TAB PO SCH (08:26)
[2017-06-13] MEDS: GLIMEPIRIDE 2 MG TAB PO SCH (08:26)
[2017-06-13] MEDS: INSULIN ASPART 100 UNITS/ML 3 ML PEN SC SCH ×2 (08:34→12:12)
[2017-06-13 10:27] LABS: BASO % 0.2 %; BASO ABS # 0.03 K/uL (0-0.2); COMPLETE YES; EOS % 0.1 %; HEMATOCRIT 32.3 % (37-47); IG% 0.3 %; LYMPH % 7.4 %; LYMPH ABS # 1.16 K/uL (1.2-3.4); MEAN CELL VOLUME 75.1 fL (80-100); MEAN CORPUSCULAR HEMOGLOBIN 25.3 pg (25-34); MEAN CORPUSCULAR HGB CONC 33.7 g/dl (32-36); MEAN PLATELET VOLUME 10.6 fL (7.4-10.4); MONO % 5.5 %; NEUT % 86.5 %; PLATELET COUNT 210 K/uL (130-400); WHITE BLOOD COUNT 15.73 K/uL (4.8-10.8)
[2017-06-13 11:05] LABS: BUN/CREATININE RATIO 11.4 (10-20); CALCIUM 8.4 mg/dl (8.5-10.1); CREATININE 0.66 mg/dl (0.60-1.20); POTASSIUM 2.5 mmol/L (3.5-5.1)
[2017-06-13] MEDS ORDERED: MCRK20 PO (11:16)
[2017-06-13] MEDS ORDERED: POTASSIUM CHLORIDE 20 MEQ TABCR PO ONE (11:30)
--- NOTE | 2017-06-13 15:33 | Discharge Summary ---
Discharge Summary Date of Service Jun 13, 2017. Discharge Summary Admission Date: Jun 12, 2017 at 01:50 Discharge Date: Jun 13, 2017 Discharge Disposition: Home with services Principal Diagnosis: pneumonia Immunizations: Have You Had Influenza Vaccine: Yes History of Tetanus Vaccine?: Yes History of Pneumococcal: Yes History of Hepatitis B Vaccine: No Medication Reconciliation New Medications: Levofloxacin (Levaquin) 500 Mg Tab 500 MG PO DAILY, #5 TABS Potassium Chloride (Klor-Con M20) 20 Meq Tabcr 40 MEQ PO DAILY, #10 DOSE Continued Medications: Aspirin (Aspirin Ec) 81 Mg Tab 81 MG PO QAM Calcium Carbonate-Vitamin D (Calcium + D) 1 Tab Tab 1 TAB PO QAM Clonazepam (Klonopin) 0.5 Mg Tab 0.5 MG PO BID Cyanocobalamin (Vitamin B12) 1,000 Mcg Tab 1 TAB PO QAM Glimepiride (Glimepiride) 2 Mg Tab 1 TAB PO QAM Metformin Hcl (Glucophage) 1,000 Mg Tab 1000 MG PO QAM, TAB Multiple Vitamins W/ Minerals (Ocuvite) 1 Tab Tab 1 TAB PO QAM Multiple Vitamins W/ Minerals (Preservision Areds) 1 Cap Cap 1 CAP PO QAM Trazodone Hcl (Trazodone) 50 Mg Tab 50 MG PO HS Discharge Exam Review of Systems: Constitutional: No fever, No chills Respiratory: No cough, No shortness of breath Cardiovascular: No chest pain, No orthopnea, No edema Physical Exam: General Appearance: WD/WN, no apparent distress Neck: supple, no JVD Cardiovascular: regular rate, rhythm, no murmur Abdomen / GI: normal bowel sounds, soft Hospital Course 71-year-old presents with fever, tachycardia, and hypoxia -CT scan consistent with right upper lobe pneumonia, PE ruled out. 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 Discharge Instructions Please refer to the electronic Patient Visit Report (Discharge Instructions) for additional information.
== END 2017-06-13 14:01 | disposition home or self-care (01) | DRG 195 ==
LOC: C.EDB 18:39 → C.MS2W 06-12 01:50 → EDBEDREQ 06-12 01:52 → ENRESERV 06-12 01:57
PROVIDERS: ADMIT Hospitalist; ATTEND Internal Medicine
DX: J18.9 Pneumonia, unspecified organism (principal); I10 Essential (primary) hypertension; F32.9 Major depressive disorder, single episode, unspecified; G47.00 Insomnia, unspecified; E11.9 Type 2 diabetes mellitus without complications; J44.9 Chronic obstructive pulmonary disease, unspecified; Z51.81 Encounter for therapeutic drug level monitoring; Z79.899 Other long term (current) drug therapy; Z79.84 Long term (current) use of oral hypoglycemic drugs; Z79.82 Long term (current) use of aspirin; Z82.49 Family history of ischemic heart disease and other diseases of the circulatory system; Z87.891 Personal history of nicotine dependence; Z85.028 Personal history of other malignant neoplasm of stomach; Z85.89 Personal history of malignant neoplasm of other organs and systems

== ENCOUNTER → 2017-07-29 | Outpatient (CLI) | payer OTHER ==
[~2017-07-29] MED LIST changes: +LEVO-459 PO; +MCRK20 PO; -MULT-506 PO
[2017-07-29 12:16] LABS: HEMATOCRIT 38.4 % (37-47); MEAN CELL VOLUME 78.7 fL (80-100); MEAN CORPUSCULAR HEMOGLOBIN 24.8 pg (25-34); MEAN CORPUSCULAR HGB CONC 31.5 g/dl (32-36); MEAN PLATELET VOLUME 10.8 fL (7.4-10.4); PLATELET COUNT 184 K/uL (130-400); RED BLOOD COUNT 4.88 M/uL (4.2-5.4); WHITE BLOOD COUNT 7.47 K/uL (4.8-10.8)
[2017-07-29 12:29] LABS: ESTIMATED AVERAGE GLUCOSE 140 mg/dl; HA1C FLAG Normal (Normal)
[2017-07-29 12:36] LABS: ALT/SGPT 39 U/L (12-78); BLOOD UREA NITROGEN 12 mg/dl (7-18); BUN/CREATININE RATIO 15.8 (10-20); CALCIUM 8.9 mg/dl (8.5-10.1); CARBON DIOXIDE 22 mmol/L (21-32); CHLORIDE 108 mmol/L (98-107); CHOLESTEROL 197 mg/dl (0-200); CREATININE 0.77 mg/dl (0.60-1.20); GLUCOSE 112 mg/dl (70-99); POTASSIUM 3.7 mmol/L (3.5-5.1); SODIUM 141 mmol/L (136-145); TRIGLYCERIDES 154 mg/dl (0-150); VERY LOW DENSITY LIPOPROT CALC 31 mg/dl
[2017-07-29 12:47] LABS: ALB/GLOB RATIO 1.2 (0.9-2); ALKALINE PHOSPHATASE 69 U/L (45-117); AST/SGOT 29 U/L (15-37); CHOLESTEROL/HDL RATIO 5.1; HDL CHOLESTEROL 39 mg/dl; LDL CHOLESTEROL CALCULATED 127 mg/dl
[2017-07-29 12:57] LABS: RATIO 111.5 mcg/mg (0-30.0)
== END | disposition home or self-care (01) ==
LOC: C.LABBFT 09:29
PROVIDERS: ATTEND Internal Medicine
DX: E11.29 Type 2 diabetes mellitus with other diabetic kidney complication (principal)

== ENCOUNTER → 2018-02-03 | Outpatient (CLI) | payer OTHER ==
[2018-02-03 12:54] LABS: HEMOGLOBIN A1C 7.4 % (4.5-5.6)
[2018-02-03 13:08] LABS: ALBUMIN 3.9 gm/dl (3.4-5.0); ALT/SGPT 58 U/L (12-78); AST/SGOT 50 U/L (15-37); BLOOD UREA NITROGEN 17 mg/dl (7-18); CALCIUM 9.9 mg/dl (8.5-10.1); CARBON DIOXIDE 21 mmol/L (21-32); GLUCOSE 157 mg/dl (70-99); SODIUM 140 mmol/L (136-145)
[2018-02-03 13:19] LABS: ALKALINE PHOSPHATASE 63 U/L (45-117); CHOLESTEROL 178 mg/dl (0-200); LDL CHOLESTEROL CALCULATED 102 mg/dl; TOTAL PROTEIN 7.5 gm/dl (6.4-8.2)
== END | disposition home or self-care (01) ==
LOC: C.LABBFT 09:10
PROVIDERS: ATTEND Nurse Practitioner
DX: E11.29 Type 2 diabetes mellitus with other diabetic kidney complication (principal); F41.9 Anxiety disorder, unspecified; E55.9 Vitamin D deficiency, unspecified